=== PATIENT | female | born 2000 | race Caucasian/White ===

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

== ENCOUNTER 2019-03-21 23:09 | Outpatient (CLI) | payer OTHER, MEDICAID ==
[2019-03-21 23:45] LABS: APPEARANCE,URINE CLEAR; BILIRUBIN,URINE NEGATIVE (NEGATIVE); COLOR,URINE YELLOW; GLUCOSE, URINE NEGATIVE (NEGATIVE); KETONES,URINE NEGATIVE (NEGATIVE); LEUKOCYTE ESTERASE,URINE SMALL (NEGATIVE); NITRITE,URINE NEGATIVE (NEGATIVE); PROTEIN,URINE NEGATIVE (NEGATIVE); URINE SPECIFIC GRAVITY 1.012; UROBILINOGEN,URINE NEGATIVE mg/dL (<2.0)
[2019-03-21 23:59] LABS: URINE AMPHETAMINES SCREEN NEGATIVE; URINE BARBITURATES SCREEN NEGATIVE; URINE BENZODIAZEPINES SCREEN NEGATIVE; URINE COCAINE SCREEN NEGATIVE; URINE MARIJUANA (THC) SCREEN NEGATIVE; URINE METHADONE SCREEN NEGATIVE; URINE PHENCYCLIDINE SCREEN NEGATIVE
[2019-03-22] MEDS ORDERED: ONDANSETRON 4 MG TAB.RAPDIS ONE (00:19)
[2019-03-22] MEDS ORDERED: ONDANSETRON 4 MG TAB.RAPDIS PO ONE (00:50)
--- NOTE | 2019-03-22 01:38 | Non Stress Test Report ---
Non Stress Test Datetime Report Generated by CPN: 03/22/2019 01:37 DEMOGRAPHIC EGA NST: 37.0 INDICATION Indication for Study: Ordered by Provider MONITORING Monitor Explained: Monitor Explained; Test Explained; Patient Verbalized Understanding Time on Monitor: 03/21/2019 23:29 Time off Monitor: 03/22/2019 01:12 NST Duration: 103 NST INTERVENTIONS NST Interventions: PO Hydration Physician Notified NST: Dr. Sosa BABY A: [id number] BABY A Movement : Present Contraction Frequency : irregular FHR Baseline : 60-180 Accelerations : 15X15 Decelerations : None Variability : Moderate 6-25bpm NST Review: Meets Criteria for Reactive NST NST Review and Verified By : Chelita Beltran RN NST Results: Reactive NST REPORT Report Trigger: Send Report
== END 2019-03-22 01:19 | disposition home or self-care (01) ==
LOC: LC 23:09
PROVIDERS: ATTEND Obstetrics & Gynecology Gynecology
PROC: 4A1HXCZ Monitoring of Products of Conception, Cardiac Rate, External Approach (ICD-10-PCS; principal; 2019-03-21)
DX: O47.1 False labor at or after 37 completed weeks of gestation (principal); Z3A.37 37 weeks gestation of pregnancy
CPT/HCPCS: 59025; 81005; 80307; 84112; S0119